=== PATIENT | female | born 1960 | race Hispanic/Latino ===

== ENCOUNTER 2017-10-18 10:11 | Outpatient (CLI) | payer BC | END 2017-10-18 10:12 | disposition home or self-care (01) | LOC: BICMAMMO 10:11 | PROVIDERS: ATTEND Family Medicine | DX: Z12.31 Encounter for screening mammogram for malignant neoplasm of breast (principal); R92.1 Mammographic calcification found on diagnostic imaging of breast; Z80.3 Family history of malignant neoplasm of breast | CPT/HCPCS: 77063; 77067 ==

== ENCOUNTER 2017-11-13 00:10 | Inpatient (IN) | payer BC ==
[2017-11-13 01:19] LABS: #Eosinphils 0.2 thou/uL (0.0-0.7); #Lymphocytes 2.3 thou/uL (1.20-3.40); #Monocytes 0.4 thou/uL (0.11-0.59); %Basophils 0.5 % (0.0-1.0); %Eosinophils 2.2 % (0.0-10.0); %Lymphocytes 29.1 % (21.0-51.0); %Monocytes 4.8 % (0.0-10.0); %Neutrophils 63.3 % (42.0-75.0); Hemoglobin 15.3 g/dL (12.0-16.0); Mean Corpuscular HGB CONC 34.5 g/dL (32.0-36.0); Mean Corpuscular Volume 89.9 fl (81.0-99.0); Mean Platelet Volume 5.8 fL (7.4-10.4); Platelet Count 338 thou/uL (130-400); RBC Distribution Width 11.6 % (11.5-14.5); Red Blood Cell (RBC) Count 4.94 mill/uL (4.20-5.40); White Blood Cell (WBC) Count 7.9 thou/uL (4.8-10.8)
[2017-11-13 01:52] LABS: ALT (SGPT) 18 U/L (8-55); AST (SGOT) 17 U/L (5-34); Albumin 4.5 g/dL (3.5-5.0); Alkaline Phosphatase 67 U/L (40-150); Anion Gap 10 mmol/L (10-20); BUN (Urea Nitrogen) 17 mg/dL (9.8-20.1); Bilirubin, Total 0.6 mg/dL (0.2-1.2); Calc. Creatinine Clearance 0 mL/min (70-130); Calcium 9.8 mg/dL (7.8-10.44); Carbon Dioxide 26 mmol/L (22-29); Chloride 104 mmol/L (98-107); Estimated GFR-MDRD 78; Globulin 3.5 g/dL (2.4-3.5); Glucose 113 mg/dL (70-105); Lipase 26 U/L (8-78); Sodium 136 mmol/L (136-145)
[2017-11-13 02:50] LABS: Bilirubin Negative (Negative); Blood, Urine Negative (Negative); Clarity CLEAR (Clear); Glucose, Urine (Dipstick) Negative (Negative); Leukocyte Trace (Negative); Nitrite Negative (Negative); Protein, Urine (Dipstick) Negative (Neg-Trace); Specific Gravity, Urine 1.016 (1.002-1.036)
[2017-11-13 02:51] LABS: Bacteria/HPF None Seen HPF (None Seen); Hyaline Casts/LPF 0-3 HYALINE CAST LPF (0-3 Hyaline); Pathc Cast-AUWi Flag 0.29 (0-2.49); RBC/HPF 0-3 HPF (0-3); Squamous Epithelial 0-3 HPF (0-3); WBC/HPF 0-3 HPF (0-3)
[2017-11-13 03:01] LABS: Pregnancy Test - Urine (BHCG) Negative (Negative); Pregu Control Background? CLEAR/WHITE (CLR/WHITE); Pregu Control Bar Appear? YES (CONTROL BAR); Specific Gravity 1.016 (1.002-1.036)
[2017-11-13] MEDS ORDERED: Ondansetron ODT 4 MG TAB ONE (03:05)
[2017-11-13] MEDS ORDERED: Morphine 4 MG/ML VIAL ONE (03:05)
[2017-11-13] MEDS ORDERED: Benzocaine 20% Spray 60 ML CAN ONE (06:32)
[2017-11-13] MEDS ORDERED: Ondansetron ODT 4 MG TAB SL PRN (08:15)
[2017-11-13] MEDS ORDERED: Ondansetron HCl/PF 4 MG/2 ML Vial IVP PRN (08:15)
[2017-11-13] MEDS ORDERED: Sodium Chloride 0.9% 500 ML IV SCH (08:45)
[2017-11-13] MEDS ORDERED: Pantoprazole 40 MG VIAL IVP SCH (09:00)
[2017-11-13] MEDS: Lactated Ringer's 1,000 ML IV SCH ×2 (09:37→17:04)
[2017-11-13] MEDS: D5 1/2 NS w/20 mEq KCL 1,000 ML IV SCH ×2 (09:43→18:43)
[2017-11-13 12:50] VITALS: BMI 32.5
[2017-11-13] MEDS ORDERED: Morphine 4 MG/ML Carpuject SLOW IVP PRN (13:23)
[2017-11-13] MEDS ORDERED: Morphine 4 MG/ML VIAL SLOW IVP PRN (13:30)
--- NOTE | 2017-11-13 13:53 | RAD ---
RADIOGRAPH ABDOMEN 1 VIEW: DATE: 11/13/17. TIME: 11:46 a.m. HISTORY: A 57-year-old female with small bowel obstruction. COMPARISON: Scanogram for the CT of 11/13/17, 4:42 a.m. FINDINGS: There is a new NG tube within a decompressed stomach, with distal tip overlying the expected vicinity of the gastroduodenal junction or distal stomach. The bowel gas pattern is normal. There is a new finding of IV contrast material within a normal-appearing urinary bladder. On the CT, the urinary bl adder was distended, but currently it is only partially filled. Cholecystectomy clips in the right u pper quadrant. IMPRESSION: 1. Interval placement of nasogastric tube. 2. Normal bowel gas pattern. 3. Status post previous cholecystectomy. POS: [facility]
[2017-11-13] MEDS: Morphine 4 MG/ML VIAL SLOW IVP PRN ×2 (13:57→19:48)
[2017-11-13] MEDS ORDERED: ISOVUE-370 76%-LOCM 1 ML ONE (15:30)
--- NOTE | 2017-11-13 18:21 | CT ---
PRELIMINARY REPORT/[facility]/EMERGENTY AFTER-HOURS PROCEDURE Addendum created by Vijay Byrnes MD on 11/13/2017 5:56 AM Central Time ([place]) THIS REPORT CONTAINS FINDINGS THAT MAY BE CRITICAL TO PATIENT CARE. The findingswere verbally communi cated via telephone conference with DORIAN REYES at 5:48 AM CDT on11/13/2017. The findings were ackno wledged and understood. Initial Report created on 11/13/2017 5:46 AM Central Time ([place] & [place]) EXAM: CT Abdomen and Pelvis With Intravenous Contrast CLINICAL HISTORY: 57 years old, female; Pain; Abdominal pain; Generalized; Patient HX: 57 y/o f with presentation of ab d pain that started at 2100 yesterday. Pt reports nausea and denies f/v, hematochezia, uti symptoms, any other complaints. Pt states that she had similar pain in the past and cause was determined to be due to "loose scar tissue or something". TECHNIQUE: Axial computed tomography images of the abdomen and pelvis with intravenous contrast. Coronal reforma tted images were created and reviewed. CONTRAST: 100 mL of ISO 370 administered intravenously. COMPARISON: No relevant prior studies available. FINDINGS: Lung bases: Unremarkable. No mass. No consolidation. ABDOMEN: Liver: Hepatomegaly and diffuse fatty infiltrationNo mass. Gallbladder and bile ducts: Prior cholecystectomy. Mild common bile ductal dilation. Pancreas: Unremarkable. No mass. No ductal dilation. Spleen: Unremarkable. No splenomegaly. Adrenals: Unremarkable. No mass. Kidneys and ureters: Question punctate left renal calculus in the upper pole. Left renal hypodensity in the lower pole is not fully characterized No solid mass. No hydronephrosis. Stomach and bowel: Mildly dilated fluid filled minimally thickened and abnormally enhancing loops of small bowel in the upper/mid abdomen extending to the level of the umbilicus. Question relative decom pression left of midline inferior to the umbilicus on axial images 58-61 PELVIS: Appendix: No findings to suggest acute appendicitis. Bladder: Unremarkable. No mass. Reproductive: Prior hysterectomy ABDOMEN and PELVIS: Intraperitoneal space: Minimal fluid adjacent to the abnormally thickened small bowel loops at the le werner of the umbilicus No free air. No significant fluid collection. Bones/joints: No acute fracture. No dislocation. Soft tissues: Unremarkable. Vasculature: Unremarkable. No abdominal aortic aneurysm. Lymph nodes: Unremarkable. No enlarged lymph nodes. IMPRESSION: Suspected developing partial small bowel obstruction with transition point to the left of midline adj acent to the umbilicus Question nonobstructing left renal calculus Mild dilatation of the common bile duct in this patient with prior cholecystectomy. Findings may be r elated to reservoir effect Thank you for allowing us to participate in the care of your patient. Dictated and Authenticated by: Vijay Byrnes MD 11/13/2017 5:46 AM Central Time ([place] & [place]) FINAL REPORT EMERGENT AFTER HOURS CT ABDOMEN AND PELVIS: IMPRESSION: Agree with the preliminary interpretation given by [facility]. Findings suggest early or low-grade partial small bowel obstruction. POS: [facility]
[2017-11-14] MEDS: D5 1/2 NS w/20 mEq KCL 1,000 ML IV SCH ×3 (03:02→20:03)
[2017-11-14] MEDS ORDERED: Acetaminophen 1,000 MG in Premix Bag 1 BAG IVPB PRN (06:32)
--- NOTE | 2017-11-14 11:06 | RAD ---
SMALL BOWEL GASTROGRAFIN WITH FOLLOW THROUGH: INDICATION: Small bowel obstruction. FINDINGS: [employer] image demonstrated a moderate amount of retained stool within the colon. The bowel gas pattern is unobstructed. Subsequent images demonstrate Gastrografin administration through a nasogastric ca theter. There is contrast filling the stomach as well as loops of small bowel. Contrast is seen ext ending to the colon by the 30 minute time parker. There is a gastric catheter projecting in the region of the distal antrum. There are also surgical clips within the right upper quadrant of the abdomen. IMPRESSION: 1. No evidence of small bowel obstruction. 2. Moderate amount of retained stool within the colon. 3. Small bowel transit time of 30 minutes. 4. Cholecystectomy. POS: [facility]
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
[2017-11-14] MEDS ORDERED: MD-Gastroview 120 ML BOT ONE (17:53)
[2017-11-15] MEDS: D5 1/2 NS w/20 mEq KCL 1,000 ML IV SCH (03:59)
[2017-11-15 07:44] VITALS: BP 136/86; TEMP 98.2
--- NOTE | 2017-11-15 12:27 | DIS ---
DISCHARGE DIAGNOSIS: Partial small-bowel obstruction, resolved. PROCEDURES DURING ADMISSION: IV hydration, NG suction, small bowel follow through. HOSPITAL COURSE: The patient was admitted, treated with NG suction, IV hydration. She still did not pass any gas, but her KUB looked pretty good. She was sent for a small bowel follow through, it kayode wed no obstruction. She had multiple bowel movements. She feels better. She is tolerating liquids. She is discharged home in good condition on her usual medications. She will follow up with me in 2 w eeks.
== END 2017-11-15 10:38 | disposition home or self-care (01) | DRG 390 ==
LOC: ERS 00:10 → SURG A 08:08
PROVIDERS: ADMIT Surgery; ATTEND Surgery
DX: K56.600 Partial intestinal obstruction, unspecified as to cause (principal)
CPT/HCPCS: 36415; 74018; 74177; 74250; 80053; 81003; 81015; 81025; 83605; 83690; 85025; 93005; 96361; 96374; A4216; C9113; J0131; J2270; Q0162

== ENCOUNTER 2018-06-16 14:46 | Emergency (ER) | payer BC ==
[2018-06-16] MEDS ORDERED: Ketorolac Tromethamine 30 MG/ML VIAL ONE (16:11)
--- NOTE | 2018-06-16 17:09 | RAD ---
LEFT SHOULDER THREE VIEW SERIES: 06/16/18 INDICATION: Injury with pain. FINDINGS: There is mild osteoarthritis without fracture or dislocation. IMPRESSION: No acute osseous abnormality of the left shoulder. POS: [facility]
--- NOTE | 2018-06-16 17:58 | RAD ---
LUMBAR SPINE THREE VIEW SERIES: 06/16/18 INDICATION: Low back pain, injury. FINDINGS: Slight accentuation of the lumbar lordosis. No compression fracture or subluxation. Disc space height s are preserved. Minute osteophytosis is seen of the end plates and there is mild facet sclerosis. IMPRESSION: No acute osseous abnormality of the lumbar spine. POS: [facility]
--- NOTE | 2018-06-16 18:52 | CT ---
CERVICAL SPINE CT NONCONTRAST: 06/16/18 INDICATION: Pain, injury. FINDINGS: No evidence of acute compression fracture or subluxation. Craniocervical junction is intact. There is mild to moderate multilevel degenerative change IMPRESSION: No acute osseous abnormality of the cervical spine. Incidental note of prominent thyroid gland heterogeneity. This may be further evaluated with followup thyroid ultrasound. Code T POS: [facility]
== END 2018-06-16 16:53 | disposition home or self-care (01) ==
LOC: ERS 14:46
DX: S46.912A Strain of unspecified muscle, fascia and tendon at shoulder and upper arm level, left arm, initial encounter (principal); E04.9 Nontoxic goiter, unspecified; V49.50XA Passenger injured in collision with unspecified motor vehicles in traffic accident, initial encounter
CPT/HCPCS: 72100; 72125; 96372; J1885

== ENCOUNTER 2018-06-30 08:16 | Outpatient (CLI) | payer BC ==
--- NOTE | 2018-06-30 09:31 | ULT ---
ULTRASOUND THYROID: History: Follow up to recent CT exam. Comparison: None. FINDINGS: The isthmus measures 6 mm in AP dimension. Right lobe measures 4.8 x 1.7 x 2.5 cm. Left lobe measures 4.7 x 1.9 x 1.8 cm. Normal vascularity. IMPRESSION: Heterogeneous thyroid without nodule to require further follow up or fine needle aspiration. Findings are likely sequellae of chronic thyroiditis. POS: [facility]
== END 2018-06-30 08:17 | disposition home or self-care (01) ==
LOC: BICULT 08:16
PROVIDERS: ATTEND Family Medicine
DX: E07.9 Disorder of thyroid, unspecified (principal)
CPT/HCPCS: 76536

== ENCOUNTER 2018-11-01 15:42 | Outpatient (CLI) | payer BC ==
--- NOTE | 2018-11-01 16:20 | MMO ---
Bilateral MAMMO Bilat Screen [facility]. CLINICAL HISTORY: Patient is 58 years old and is seen for screening. The patient has the following family history of breast cancer: mother, in her 50's. The patient has no personal history of cancer. VIEWS: The views performed were: bilateral craniocaudal with tomosynthesis and bilateral mediolateral oblique with tomosynthesis. FILMS COMPARED: The present examination has been compared to prior imaging studies performed at on 01/23/2014, 07/16/2015, 07/20/2016 and 10/18/2017. MAMMOGRAM FINDINGS: There are scattered fibroglandular densities. Finding 1: There are vascular calcifications seen in both breasts. Finding 2: There are benign appearing calcifications seen in both breasts. There are no suspicious masses, suspicious calcifications, or new areas of architectural distortion. IMPRESSION: THERE IS NO MAMMOGRAPHIC EVIDENCE OF MALIGNANCY. A ROUTINE FOLLOW-UP MAMMOGRAM IN 1 YEAR IS RECOMMENDED. THE RESULTS OF THIS EXAM WERE SENT TO THE PATIENT. ACR BI-RADS Category 2 - Benign finding MAMMOGRAPHY NOTE: 1. A negative mammogram report should not delay a biopsy if a dominant of clinically suspicious mass is present. 2. Approximately 10% to 15% of breast cancers are not detected by mammography. 3. Adenosis and dense breasts may obscure an underlying neoplasm.
== END 2018-11-01 15:43 | disposition home or self-care (01) ==
LOC: BICMAMMO 15:42
PROVIDERS: ATTEND Family Medicine
DX: Z12.31 Encounter for screening mammogram for malignant neoplasm of breast (principal)
CPT/HCPCS: 77063; 77067

== ENCOUNTER 2019-03-27 13:50 | Observation (INO) | payer BC ==
[~2019-03-27 13:50] MED LIST: ISOVUE-370 76%-LOCM 1 ML ONE
--- NOTE | 2019-03-27 14:15 | RAD ---
XR Chest Pa Lat STANDARD History: Chest pain Comparison: None. Findings: Lungs are clear. No pneumothorax or effusion. Cardiac silhouette and mediastinal contours a re within normal limits. No acute osseous abnormality. Right upper quadrant surgical clips. Impression: No acute intrathoracic abnormality.
[2019-03-27 14:39] LABS: #Eosinphils 0.1 thou/uL (0.0-0.7); #Lymphocytes 1.9 thou/uL (1.20-3.40); #Monocytes 0.3 thou/uL (0.11-0.59); #Neutrophils 3.4 thou/uL (1.40-6.50); %Basophils 0.7 % (0.0-1.0); %Eosinophils 2.5 % (0.0-10.0); %Lymphocytes 32.3 % (21.0-51.0); %Monocytes 5.8 % (0.0-10.0); %Neutrophils 58.8 % (42.0-75.0); Hemoglobin 14.1 g/dL (12.0-16.0); Mean Corpuscular HGB CONC 34.1 g/dL (32.0-36.0); Mean Corpuscular Hemoglobin 30.9 pg (27.0-31.0); Mean Corpuscular Volume 90.6 fL (78.0-98.0); Mean Platelet Volume 6.1 fL (7.4-10.4); Platelet Count 314 thou/uL (130-400); RBC Distribution Width 11.7 % (11.5-14.5); Red Blood Cell (RBC) Count 4.57 mill/uL (4.20-5.40); White Blood Cell (WBC) Count 5.8 thou/uL (4.8-10.8)
[2019-03-27 15:06] LABS: ALT (SGPT) 33 U/L (8-55); AST (SGOT) 31 U/L (5-34); Albumin 4.8 g/dL (3.5-5.0); Alkaline Phosphatase 76 U/L (40-150); Anion Gap 14 mmol/L (10-20); BUN (Urea Nitrogen) 10 mg/dL (9.8-20.1); Bilirubin, Total 0.5 mg/dL (0.2-1.2); Calc. Creatinine Clearance 0 mL/min (70-130); Calcium 10.4 mg/dL (7.8-10.44); Carbon Dioxide 27 mmol/L (22-29); Chloride 102 mmol/L (98-107); Estimated GFR-MDRD 87; Globulin 2.9 g/dL (2.4-3.5); Glucose 91 mg/dL (70-105); Lipase 15 U/L (8-78); Potassium 4.2 mmol/L (3.5-5.1); Protein, Total 7.7 g/dL (6.0-8.3); Sodium 139 mmol/L (136-145)
[2019-03-27] MEDS ORDERED: Nitroglycerin 0.4 MG TAB 1 EACH ONE (16:10)
[2019-03-27] MEDS ORDERED: Morphine 4 MG/ML VIAL ONE ×2 (16:10→20:55)
--- NOTE | 2019-03-27 17:20 | CT ---
CT ABDOMEN WITH CONTRAST CT PELVIS WITH CONTRAST: DATE: 03/27/2019 HISTORY: 58-year-old female with worsening upper abdominal pain. TECHNIQUE: IV injection of iodinated contrast media: Administered Oral contrast media:Not administered FINDINGS: Liver: No focal solid mass. Spleen: No splenomegaly.. Pancreas: No mass or surrounding fat stranding.. Adrenals: No mass.. Kidneys: No hydronephrosis or enhancement abnormalities.. Small left renal lower pole cyst, unchanged Ureters: No dilation. Bladder: No pathology identified. Abdominal aorta: No aneurysm. Small bowel: No dilation. Previously there was small bowel dilation in left lower quadrant. That is n o longer the case. No other interval change. Colon: No adjacent fat stranding. Appendix: No dilation or adjacent fat stranding.. Free air: None. Free fluid: None. IMPRESSION: No major pathology identified..
[2019-03-27] MEDS ORDERED: Mag-Al 1200 mg/1200 mg/30 ML UDCUP ONE (18:17)
[2019-03-27] MEDS ORDERED: Lidocaine Viscous Sol 2% 15 ml UD Cup ONE (18:17)
[2019-03-27] MEDS ORDERED: Pantoprazole 40 MG VIAL ONE (18:17)
[2019-03-27] MEDS ORDERED: Nitroglycerin 2% Ointment 1 INCH/1 GM Packet ONE (20:55)
[2019-03-27] MEDS ORDERED: Nitroglycerin 0.4 MG TAB (25 Tab Bottle) PO PRN (21:42)
[2019-03-27 22:09] LABS: Troponin I Less than 0.010 ng/mL (< 0.028)
[2019-03-27] MEDS ORDERED: Ondansetron PF 4 MG/2 ML Vial ONE (22:18)
[2019-03-27 22:49] VITALS: BMI 33.9
[2019-03-27] MEDS ORDERED: Morphine 2 MG/ML SYRINGE SLOW IVP PRN (23:41)
[2019-03-27] MEDS ORDERED: Ondansetron PF 4 MG/2 ML Vial IVP PRN (23:41)
[2019-03-27] MEDS ORDERED: Pantoprazole 40 MG VIAL IVP SCH (23:45)
[2019-03-27] MEDS ORDERED: Sodium Chloride 0.9% 1,000 ML IV SCH (23:45)
[2019-03-27] MEDS ORDERED: Sodium Chloride 0.9% (PF) 10 ML VIAL FS PRN (23:46)
[2019-03-28 01:04] LABS: Troponin I Less than 0.010 ng/mL (< 0.028)
--- NOTE | 2019-03-28 04:07 | HP ---
CHIEF COMPLAINT: Epigastric pain starting today. HISTORY OF PRESENT ILLNESS: The patient is a very pleasant 58-year-old female with past medical history of GERD and several small bowel obstructions, who presented to the hospital with complaints of epigastric pain, which radiated up to her chest area. The patient stated that she ate her lunch pretty quickly and she was on her way returning from [place] when she started having some crampy epigastric abdominal pain. The patient stated that she tried to get some rest and see if her pain improved; however her pain did not, so she came into the hospital for further evaluation. The patient stated that her pain today started radiating up to her chest area, had some nausea and 1 bout of vomiting. Denies any fevers, chills or diarrhea. The patient states that she has had small bowel obstructions in the past and her pain felt very similar to this. She also states that when she eats lettuce or certain types of foods, which cause her pain to worsen given her extensive abdominal surgeries possibly due to her adhesions. The patient denies any constipation. She had a bowel movement today. She is also positive for passing flatus. PAST MEDICAL HISTORY: She has had small bowel obstructions 3 or 4 times with no surgical intervention. She has history of GERD in the past. However, currently is not on any medication. PAST SURGICAL HISTORY: She has had x3. She has a cholecystectomy. She has also had a hysterectomy. FAMILY HISTORY: History of hypertension, diabetes. Brother of [place] and another brother had an [place]. SOCIAL HISTORY: Alcohol, occasional use. No tobacco use. No drug use. ALLERGIES: NO KNOWN DRUG ALLERGIES. MEDICATIONS: She takes none. CODE: She is a full code. PHYSICAL EXAMINATION: VITAL SIGNS: Temperature 96.8, 66, 69% on room air, 133/69. GENERAL: She is awake, alert, and oriented x3. Does not appear in distress. HEENT: Normocephalic, atraumatic. No lymphadenopathy noted. Pupils are equal reactive to light. CV: S1 and S2 present. No murmurs, rubs, or gallops. LUNGS: Clear to auscultation. No rhonchi or wheezes noted. ABDOMEN: Soft. Bowel sounds are present x2. She does have pain upon palpation to her epigastric area and her right upper quadrant. EXTREMITIES: No edema. Pedal pulses are present x2. NEUROVASCULAR: No focal deficits noted. SKIN: No cuts, lesions or bruises noted. LABORATORY RESULTS: WBCs of 5.8, hemoglobin of 14.1, hematocrit of 41.4, platelets of 314. Chemistry; sodium of 139, potassium of 4.2, BUN of 10, creatinine 0.70. Troponins x3 were negative. LFTs are normal. IMAGING: She did have a CT of abdomen and pelvis and a chest x-ray. Her CT of abdomen and pelvis was essentially normal and her chest x-ray did not show any acute abnormalities either. ASSESSMENT AND PLAN: The patient is a very pleasant 58-year-old female who presents to the hospital with epigastric pain radiating up to her chest. Epigastric pain. This could be secondary to gastroesophageal reflux disease versus possible pain due to her previous adhesions. She did have a CT of abdomen and pelvis, which does not indicate any small-bowel obstruction. Her lipase was normal at 15. I will start her on some IV hydration and p.r.n. pain medications. I will also put her on some Protonix b.i.d. She stated that her pain radiated up to her chest area, which was cramping in nature. I do not believe this is cardiac in nature. I believe this is an atypical pain. Her troponins x3 are negative. Her EKG was normal. The patient states that her pain that she is having today is similar to her previous pain when she has had a small bowel obstruction. She is passing flatus and has had a bowel movement yesterday. We will continue to monitor her and also will add some p.r.n. [place]. 1. History of gastroesophageal reflux disease. I have already started her on some Protonix. 2. Deep venous thrombosis prophylaxis. We will put the patient on some Lovenox. Job ID: [id number]
[2019-03-28] MEDS ORDERED: Pantoprazole 40 MG VIAL IVP SCH (09:00)
[2019-03-28] MEDS ORDERED: Aspirin 325 mg Enteric Coated Tablet PO SCH (09:00)
[2019-03-28] MEDS ORDERED: Enoxaparin Sodium 40 MG/0.4 ML SYRINGE SC SCH (09:00)
[2019-03-28] MEDS ORDERED: Acetaminophen 325 MG TAB PO PRN (09:35)
--- NOTE | 2019-03-28 15:07 | DIS ---
DATE OF ADMISSION: 03/27/2019 DATE OF DISCHARGE: 03/28/2019 DISCHARGE DISPOSITION: To home. PRIMARY DISCHARGE DIAGNOSIS: Possible partial small-bowel obstruction, resolved. SECONDARY DISCHARGE DIAGNOSES: Mild dyslipidemia, prior history of x3 , laparoscopic cholecystectomy, hysterectomy, prior history of small bowel obstruction x4, gastroesophageal reflux disease. PROCEDURES DONE DURING HOSPITALIZATION: Troponin x3 was negative. LDL 123. CT of the abdomen and pelvis with contrast done showed no major pathology. Chest x- ray done showed no acute intrathoracic abnormality. Hemoglobin and hematocrit 14 and 41, platelet count 314. Total cholesterol 214, triglycerides 94, LDL 123, HDL 72, lipase is 15, BUN 10, creatinine 0.7. LFTs within normal limits. Albumin 4.8. DISCHARGE MEDICATIONS: Protonix 40 mg p.o. daily for another 15 days. ALLERGIES: NO KNOWN DRUG ALLERGIES. DISCHARGE PLAN: The patient to follow up with primary care physician in 1 week. The patient to follow up with Dr. Dorian Garza, her primary care physician, in 1 week. BRIEF COURSE DURING HOSPITALIZATION: The patient initially came in with complaints of epigastric pain, bloating, and feeling nauseated. She has had prior history of small bowel obstruction x4 and felt this was something similar to that. She has had multiple intraabdominal surgeries including x3, laparoscopic cholecystectomy, and hysterectomy in the past. She also had this epigastric pain radiating into her chest. Troponin x3 was done, which is negative. She has had a CT of the abdomen and pelvis with contrast done, which did not reveal any acute pathology. Likely, the patient had a partial small bowel obstruction, which got resolved. She has tolerated liquid diet this morning. She will be given a full solid diet this afternoon, and if she tolerates, she will be discharged home. Please note, I have seen and examined the patient on the day of discharge. She is otherwise hemodynamically stable now. Job ID: [id number] [facility]
[2019-03-28 16:17] VITALS: BP 129/68; TEMP 98.3
== END 2019-03-28 16:10 | disposition home or self-care (01) ==
LOC: ERS 13:50 → 2NO 22:35
PROVIDERS: ADMIT Internal Medicine; ATTEND Internal Medicine
DX: K21.9 Gastro-esophageal reflux disease without esophagitis (principal); E78.5 Hyperlipidemia, unspecified
CPT/HCPCS: 36415; 71046; 74177; 80053; 80061; 83690; 84484; 85025; 93005; 94760; 96361; 96372; 96374; 96375; 96376; C9113; G0378; J1650; J2270; J2405; Q9966

== ENCOUNTER 2019-09-17 00:27 | Inpatient (IN) | payer BC ==
[2019-09-17] MEDS ORDERED: Morphine 4 MG/ML VIAL ONE (00:51)
[2019-09-17] MEDS ORDERED: Ondansetron PF 4 MG/2 ML Vial ONE (00:51)
[2019-09-17 01:03] LABS: #Basophils 0.1 thou/uL (0.0-0.2); #Eosinphils 0.2 thou/uL (0.0-0.7); #Lymphocytes 2.6 thou/uL (1.20-3.40); #Monocytes 0.4 thou/uL (0.11-0.59); #Neutrophils 4.4 thou/uL (1.40-6.50); %Basophils 1.1 % (0.0-1.0); %Eosinophils 3.1 % (0.0-10.0); %Lymphocytes 33.2 % (21.0-51.0); %Monocytes 5.8 % (0.0-10.0); %Neutrophils 56.9 % (42.0-75.0); Hemoglobin 15.1 g/dL (12.0-16.0); Mean Corpuscular HGB CONC 35.3 g/dL (32.0-36.0); Mean Corpuscular Hemoglobin 32.2 pg (27.0-31.0); Mean Corpuscular Volume 91.2 fL (78.0-98.0); Mean Platelet Volume 6.6 fL (7.4-10.4); Platelet Count 342 thou/uL (130-400); RBC Distribution Width 11.5 % (11.5-14.5); White Blood Cell (WBC) Count 7.7 thou/uL (4.8-10.8)
[2019-09-17 01:19] LABS: ALT (SGPT) 31 U/L (8-55); AST (SGOT) 23 U/L (5-34); Albumin 4.6 g/dL (3.5-5.0); Alkaline Phosphatase 78 U/L (40-110); Anion Gap 15 mmol/L (10-20); BUN (Urea Nitrogen) 13 mg/dL (9.8-20.1); Bilirubin, Total 0.4 mg/dL (0.2-1.2); Calc. Creatinine Clearance 0 mL/min (70-130); Calcium 9.5 mg/dL (7.8-10.44); Carbon Dioxide 23 mmol/L (22-29); Chloride 104 mmol/L (98-107); Estimated GFR-MDRD 75; Globulin 3.6 g/dL (2.4-3.5); Glucose 109 mg/dL (70-105); Lipase 25 U/L (8-78); Protein, Total 8.2 g/dL (6.0-8.3); Sodium 138 mmol/L (136-145)
[2019-09-17] MEDS ORDERED: Morphine 2 MG/ML SYRINGE SLOW IVP PRN ×2 (03:21→14:47)
[2019-09-17] MEDS ORDERED: Ondansetron ODT 4 MG TAB SL PRN (03:22)
[2019-09-17] MEDS ORDERED: Ondansetron PF 4 MG/2 ML Vial IVP PRN ×2 (03:22→14:48)
[2019-09-17 03:46] VITALS: BMI 35.2
[2019-09-17] MEDS: Sodium Chloride 0.9% 1,000 ML IV SCH ×5 (04:14→23:08)
[2019-09-17] MEDS: Morphine 4 MG/ML VIAL SLOW IVP PRN ×2 (04:47→09:00)
--- NOTE | 2019-09-17 07:09 | CT ---
PRELIMINARY REPORT/[facility]/EMERGENCY AFTER HOURS PROCEDURE: This report was discussed with Gabby Prather RN by Tierra Moreno on Sep 17, 2019 02:00:00 [employer]. Addendum electronically signed by Tierra Moreno on September 17, 2019 2:00:47 AM [employer] EXAM: CT Abdomen and Pelvis with Intravenous Contrast CLINICAL HISTORY: PT REPORTS DIFFUSE ABD PAIN AND NAUSEA STARTING AT 2030. TECHNIQUE: Axial computed tomography images of the abdomen and pelvis with intravenous contrast. CONTRAST: With; ISOVUE 370,100mL COMPARISON: None provided. FINDINGS: Lung bases are clear. No acute abnormality of the solid viscera. The appendix is normal. Several prominent loops of ileum at the lower abdomen, with fecalization terminating at a gradual tra nsition point at the anterior midline. No mural thickening. No focal fluid collections. No free air. No acute osseous abnormality. IMPRESSION: Possible early or partial small bowel obstruction. Recommend clinical correlation. ELECTRONICALLY SIGNED BY: Jerrod Stafford MD Sep 17, 2019 1:52:22 AM [employer] This report is intended for review by the ordering physician only, in accordance of law. If you recei ve this report in error, please call [facility] at [phone]. FINAL REPORT EMERGENCY AFTER HOURS CT ABDOMEN AND PELVIS: I agree with the preliminary report provided by [facility]. A few mildly dilated fluid-filled loops of small bowel within the lower midline abdomen and upper pel vis may reflect a mild partial small bowel obstruction or regional ileus related to an enteritis. Con tinued clinical follow-up is recommended. POS: [facility]
--- NOTE | 2019-09-17 08:00 | RAD ---
CHEST 1 VIEW: INDICATION: History of NG tube placement. COMPARISON: Prior exam of 03/27/2019. FINDINGS: A gastric catheter projects in the region of the gastric body. Visualized lungs are clear. Portions of the right hemithorax are excluded. Osseous structures reveal no acute abnormality. IMPRESSION: Gastric catheter in the region of the proximal gastric body. POS: [facility]
[2019-09-17] MEDS ORDERED: Sodium Chloride 0.9% 1,000 ML IV SCH (08:30)
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
[2019-09-17] MEDS ORDERED: Iopamidol-370 76% 500 ML 1 ML ONE (14:30)
--- NOTE | 2019-09-17 14:34 | RAD ---
Exam: Small bowel series: HISTORY: Small bowel obstruction COMPARISON: 11/14/2017 FINDINGS: Gastrografin contrast introduced per NG tube. There is some mild dilatation of the mid to distal smal l bowel loops. Contrast media progresses through these loops into nondilated distal small bowel and into the colon by 4 hours. IMPRESSION: Very mild dilatation of the mid and distal small bowel, nonspecific, with contrast media progressing through the small bowel entering the colon by 4 hours. No significant high-grade bowel obstruction.
[2019-09-17] MEDS ORDERED: Morphine 4 MG/ML VIAL SLOW IVP PRN (14:48)
[2019-09-17] MEDS ORDERED: MD-Gastroview 120 ML BOT ONE (14:50)
[2019-09-18] MEDS: Sodium Chloride 0.9% 1,000 ML IV SCH ×2 (07:03→16:03)
[2019-09-18] MEDS ORDERED: Sodium Chloride 0.9% (PF) 10 ML VIAL FS PRN (08:07)
[2019-09-18] MEDS: Pantoprazole 40 MG VIAL IVP SCH (08:18)
--- NOTE | 2019-09-18 08:23 | PRG ---
DATE OF SERVICE: 09/18/2019 SUBJECTIVE: The patient states she is feeling better. Pain is pretty well gone. She had a bowel movement. No nausea or vomiting. OBJECTIVE: HEENT: On examination, the NG tube has some blood-tinged coffee-ground material. She has put out 500 from it. ABDOMEN: Soft and nondistended. The small bowel follow-through was okay. No obstruction. ASSESSMENT: Doing well. PLAN: Will clamp the NG tube and check residual. If it is low, we will discontinue in 4 hours. Job ID: [id number]
[2019-09-18 08:39] LABS: #Eosinphils 0.1 thou/uL (0.0-0.7); #Lymphocytes 1.7 thou/uL (1.20-3.40); #Monocytes 0.3 thou/uL (0.11-0.59); #Neutrophils 4.3 thou/uL (1.40-6.50); %Basophils 0.3 % (0.0-1.0); %Eosinophils 1.9 % (0.0-10.0); %Lymphocytes 25.6 % (21.0-51.0); %Monocytes 5.3 % (0.0-10.0); Hemoglobin 14.8 g/dL (12.0-16.0); Mean Corpuscular HGB CONC 33.4 g/dL (32.0-36.0); Mean Corpuscular Hemoglobin 30.7 pg (27.0-31.0); Mean Platelet Volume 6.4 fL (7.4-10.4); Platelet Count 313 thou/uL (130-400); RBC Distribution Width 11.5 % (11.5-14.5); Red Blood Cell (RBC) Count 4.81 mill/uL (4.20-5.40); White Blood Cell (WBC) Count 6.4 thou/uL (4.8-10.8)
[2019-09-19] MEDS: Sodium Chloride 0.9% 1,000 ML IV SCH ×2 (00:04→08:40)
[2019-09-19 03:41] VITALS: TEMP 98.1
[2019-09-19 08:16] VITALS: BP 129/83
[2019-09-19] MEDS: Pantoprazole 40 MG VIAL IVP SCH (08:41)
--- NOTE | 2019-09-19 11:25 | DIS ---
DATE OF ADMISSION: 09/17/2019 DATE OF DISCHARGE: 09/19/2019 DISCHARGE DIAGNOSIS: Small bowel obstruction, resolved. PROCEDURES DURING ADMISSION: IV hydration, NG suction, small bowel follow-through. HOSPITAL COURSE: The patient was admitted, given IV fluids, NG suction, passed a little gas. A small bowel follow-through was performed, it showed flow into the colon. She has had bowel movements. She was started on liquids. She is tolerating diet well. She is discharged home on her usual medications and will follow up with her primary care physician in 2 weeks. Job ID: [id number]
== END 2019-09-19 11:16 | disposition home or self-care (01) | DRG 390 ==
LOC: ERS 00:27 → ERHOLD 02:10 → SURG A 03:34 → OBSVTOIN 16:11
PROVIDERS: ADMIT Surgery; ATTEND Surgery
DX: K56.600 Partial intestinal obstruction, unspecified as to cause (principal); K21.9 Gastro-esophageal reflux disease without esophagitis; Z90.49 Acquired absence of other specified parts of digestive tract; Z90.710 Acquired absence of both cervix and uterus
CPT/HCPCS: 36415; 71045; 74177; 74250; 80053; 83690; 85025; 96361; 96374; 96375; C9113; J2270; J2405; Q9963; Q9967

== ENCOUNTER 2020-07-08 08:00 | Outpatient (CLI) | payer BC ==
--- NOTE | 2020-07-08 09:00 | MMO ---
Bilateral MAMMO Bilat Screen [facility]. CLINICAL HISTORY: Patient is 60 years old and is seen for screening. The patient has the following family history of breast cancer: mother, in her 50's. The patient has no personal history of cancer. VIEWS: The views performed were: bilateral craniocaudal with tomosynthesis and bilateral mediolateral oblique with tomosynthesis. FILMS COMPARED: The present examination has been compared to prior imaging studies performed at [facility] on 07/16/2015, 07/20/2016, 10/18/2017 and 11/01/2018. This study has been interpreted with the assistance of computer-aided detection. MAMMOGRAM FINDINGS: There are scattered fibroglandular densities. Finding 1: There are stable calcifications seen in both breasts. Finding 2: There are a few stable nodules seen in the right breast. There are no suspicious masses, suspicious calcifications, or new areas of architectural distortion. IMPRESSION: THERE IS NO MAMMOGRAPHIC EVIDENCE OF MALIGNANCY. A ROUTINE FOLLOW-UP MAMMOGRAM IN 1 YEAR IS RECOMMENDED. THE RESULTS OF THIS EXAM WERE SENT TO THE PATIENT. ACR BI-RADS Category 2 - Benign finding MAMMOGRAPHY NOTE: 1. A negative mammogram report should not delay a biopsy if a dominant of clinically suspicious mass is present. 2. Approximately 10% to 15% of breast cancers are not detected by mammography. 3. Adenosis and dense breasts may obscure an underlying neoplasm. Reported by: NOAH REYNA MD Electonically Signed: [id number]
== END 2020-07-08 08:01 | disposition home or self-care (01) ==
LOC: BICMAMMO 08:00
PROVIDERS: ATTEND Physician Assistant
DX: Z12.31 Encounter for screening mammogram for malignant neoplasm of breast (principal); Z80.3 Family history of malignant neoplasm of breast
CPT/HCPCS: 77063; 77067

== ENCOUNTER 2021-07-09 09:03 | Outpatient (CLI) | payer BC | END 2021-07-09 09:04 | disposition home or self-care (01) | LOC: BICMAMMO 09:03 | PROVIDERS: ATTEND Physician Assistant | DX: Z12.31 Encounter for screening mammogram for malignant neoplasm of breast (principal); Z80.3 Family history of malignant neoplasm of breast | CPT/HCPCS: 77063; 77067 ==

== ENCOUNTER 2025-03-08 22:37 | Emergency (ER) | payer BC ==
[2025-03-08] MEDS ORDERED: Acetaminophen 500 MG TAB ONE (22:50)
[2025-03-08] MEDS ORDERED: Ibuprofen 200 MG TAB ONE (22:51)
[2025-03-08] MEDS ORDERED: Erythromycin Base 0.5% Oint 1 GM TUBE ONE (23:40)
[2025-03-08] MEDS ORDERED: Dexamethasone 10 MG/ML VIAL ONE (23:47)
== END 2025-03-08 23:49 | disposition home or self-care (01) ==
LOC: ERS 22:37
DX: J06.9 Acute upper respiratory infection, unspecified (principal)
CPT/HCPCS: 71045; 87081; 87428; 87430; J1100; Q0162

== ENCOUNTER 2025-05-27 08:41 | Outpatient (CLI) | payer BC | END 2025-05-27 08:42 | disposition home or self-care (01) | LOC: BICMAMMO 08:41 | PROVIDERS: ATTEND Family Medicine | DX: Z12.31 Encounter for screening mammogram for malignant neoplasm of breast (principal); Z80.3 Family history of malignant neoplasm of breast | CPT/HCPCS: 77063; 77067 ==